=== PATIENT | female | born 1995 | race Two or more races ===

== ENCOUNTER 2017-08-18 22:19 | Emergency (ER) | payer SELFPAY ==
[~2017-08-18] VITALS: Ht 170.2 cm; Wt 136.0 kg
[2017-08-18 23:22] LABS: HEMATOCRIT 35.5 % (36.0-46.0); HEMOGLOBIN 12.1 G/DL (11.9-15.5); MCH 28.6 PG (29.0-34.0); MCHC 34.1 G/DL (30.0-36.0); MCV 83.9 FL (83-99); PLATELET COUNT 294 K/uL (156-360); RBC DIS.WIDTH-CV 12.8 % (11.8-14.6); RBC DIS.WIDTH-SD 39.2 % (39-53); RED BLOOD COUNT 4.23 M/uL (3.80-5.20); WHITE BLOOD COUNT 9.3 K/uL (4.1-10.2)
[2017-08-18 23:30] LABS: CHLORIDE 108 mEq/L (99-109); POTASSIUM 3.7 mEq/L (3.7-5.4); SODIUM 140 mEq/L (136-147)
[2017-08-18 23:32] LABS: GLUCOSE 74 mg/dL (70-99)
[2017-08-18 23:36] LABS: CREATININE 0.8 mg/dL (0.6-1.3); GFR ESTIMATE (CALCULATED) > 59 mL/min/
[2017-08-18 23:37] LABS: UREA NITROGEN (BUN) 10 mg/dL (9-23)
[2017-08-19 00:04] LABS: APPEARANCE CLEAR ((CLEAR)); BILIRUBIN NEGATIVE; BLOOD NEGATIVE; COLOR YELLOW ((YELLOW)); GLUCOSE (STRIP) NEGATIVE; KETONES NEGATIVE; LEUKOCYTES NEGATIVE; NITRITE NEGATIVE; PROTEIN (STRIP) NEGATIVE; SPECIFIC GRAVITY 1.024 (1.000-1.030); UCUL ADDED? NO; UROBILINOGEN 0.2 MG/DL (0.2-1.0)
[2017-08-19 01:20] VITALS: BP 121/77
== END 2017-08-19 01:30 | disposition home or self-care (01) ==
LOC: EDBD 22:19 → EME 22:19
PROVIDERS: Emergency Medicine
DX: G40.909 Epilepsy, unspecified, not intractable, without status epilepticus (principal); Z87.820 Personal history of traumatic brain injury
CPT/HCPCS: 80048; 81003; 81025; 83605; 85027; 93005; 99281; 99285

== ENCOUNTER 2017-09-16 22:16 | Emergency (ER) | payer SELFPAY ==
[~2017-09-16] VITALS: Ht 175.3 cm; Wt 138.9 kg
[2017-09-16 23:36] LABS: HEMATOCRIT 35.1 % (36.0-46.0); HEMOGLOBIN 11.7 G/DL (11.9-15.5); MCH 28.1 PG (29.0-34.0); MCHC 33.3 G/DL (30.0-36.0); MCV 84.4 FL (83-99); PLATELET COUNT 318 K/uL (156-360); RBC DIS.WIDTH-CV 12.7 % (11.8-14.6); RBC DIS.WIDTH-SD 38.9 % (39-53); RED BLOOD COUNT 4.16 M/uL (3.80-5.20)
[2017-09-16 23:48] LABS: CHLORIDE 107 mEq/L (99-109); POTASSIUM 3.7 mEq/L (3.7-5.4); SODIUM 139 mEq/L (136-147)
[2017-09-16 23:51] LABS: GLUCOSE 101 mg/dL (70-99); TOTAL PROTEIN 7.5 g/dL (6.4-8.3)
[2017-09-16 23:51] LABS: APPEARANCE CLOUDY ((CLEAR)); BILIRUBIN NEGATIVE; BLOOD SMALL; COLOR YELLOW ((YELLOW)); GLUCOSE (STRIP) NEGATIVE; KETONES NEGATIVE; LEUKOCYTES LARGE; NITRITE NEGATIVE; PROTEIN (STRIP) NEGATIVE; SPECIFIC GRAVITY 1.023 (1.000-1.030); UROBILINOGEN 0.2 MG/DL (0.2-1.0)
[2017-09-16 23:53] LABS: TOTAL BILIRUBIN 0.2 mg/dL (0.0-1.0)
[2017-09-16 23:54] LABS: ALKALINE PHOSPHATASE 103 IU/L (3-129); CREATININE 0.8 mg/dL (0.6-1.3); GFR ESTIMATE (CALCULATED) > 59 mL/min/
[2017-09-16 23:56] LABS: BACTERIA RARE /HPF; EPITHELIAL CELLS 2+ /HPF; MUCUS 1+ /LPF; UCUL ADDED? YES
[2017-09-16 23:56] LABS: AST (GOT) 28 IU/L (2-34); TROP-I INTERPRETATION NEGATIVE; TROPONIN-I < 0.01 ng/mL (0.0-0.30); UREA NITROGEN (BUN) 13 mg/dL (9-23)
[2017-09-16 23:57] LABS: ALT (GPT) 36 IU/L (3-49)
[2017-09-16 23:58] LABS: LIPASE 27 U/L (1.0-51.0)
[2017-09-17] MEDS ORDERED: DIFLUCAN150 MG PO (01:52)
[2017-09-17 02:37] LABS: SOURCE SWAB
[2017-09-17 03:14] VITALS: BP 131/99
== END 2017-09-17 03:21 | disposition home or self-care (01) ==
LOC: EME 22:16
PROVIDERS: Emergency Medicine
DX: R07.89 Other chest pain (principal); B37.3 Candidiasis of vulva and vagina; N64.4 Mastodynia; Z86.69 Personal history of other diseases of the nervous system and sense organs; Z87.820 Personal history of traumatic brain injury; Z83.2 Family history of diseases of the blood and blood-forming organs and certain disorders involving the immune mechanism
CPT/HCPCS: 71046; 80053; 81003; 81025; 83690; 84484; 85027; 85379; 87086; 87491; 87591; 93005; 99281; 99284; J0696

== ENCOUNTER 2017-10-24 18:45 | Emergency (ER) | payer SELFPAY ==
[~2017-10-24] VITALS: Ht 175.3 cm; Wt 136.4 kg
[~2017-10-24 18:45] MED LIST: DIFLUCAN150 MG PO
[2017-10-24 19:11] LABS: HEMATOCRIT 36.4 % (36.0-46.0); HEMOGLOBIN 12.2 G/DL (11.9-15.5); MCH 28.2 PG (29.0-34.0); MCHC 33.5 G/DL (30.0-36.0); MCV 84.1 FL (83-99); PLATELET COUNT 295 K/uL (156-360); RBC DIS.WIDTH-CV 13.3 % (11.8-14.6); RED BLOOD COUNT 4.33 M/uL (3.80-5.20); WHITE BLOOD COUNT 9.1 K/uL (4.1-10.2)
[2017-10-24 19:23] LABS: CHLORIDE 106 mEq/L (99-109); POTASSIUM 3.6 mEq/L (3.7-5.4); SODIUM 138 mEq/L (136-147)
[2017-10-24 19:25] LABS: GLUCOSE 103 mg/dL (70-99); TOTAL PROTEIN 7.2 g/dL (6.4-8.3)
[2017-10-24 19:27] LABS: TOTAL BILIRUBIN 0.4 mg/dL (0.0-1.0)
[2017-10-24 19:29] LABS: ALKALINE PHOSPHATASE 90 IU/L (3-129); CREATININE 0.8 mg/dL (0.6-1.3); GFR ESTIMATE (CALCULATED) > 59 mL/min/
[2017-10-24 19:30] LABS: UREA NITROGEN (BUN) 9 mg/dL (9-23)
[2017-10-24 19:32] LABS: ALT (GPT) 73 IU/L (3-49); AST (GOT) 56 IU/L (2-34); LIPASE 27 U/L (1.0-51.0)
[2017-10-24 19:40] LABS: QUANTITATIVE HCG < 4.0 MIU/ML
[2017-10-24 19:59] LABS: APPEARANCE CLOUDY ((CLEAR)); BILIRUBIN NEGATIVE; BLOOD NEGATIVE; COLOR YELLOW ((YELLOW)); GLUCOSE (STRIP) NEGATIVE; KETONES NEGATIVE; LEUKOCYTES NEGATIVE; NITRITE NEGATIVE; PROTEIN (STRIP) 100; SPECIFIC GRAVITY 1.031 (1.000-1.030)
[2017-10-24 20:26] LABS: BACTERIA 2+ /HPF; EPITHELIAL CELLS 1+ /HPF; MUCUS 1+ /LPF; RED BLOOD CELLS 0-5 /HPF (0-5); UCUL ADDED? YES; WHITE BLOOD CELLS 0-5 /HPF (0-5)
[2017-10-24 20:27] LABS: AMORPHOUS URATES CRYSTALS 2+; HYALINE CASTS 0-5 /LPF
[2017-10-24] MEDS ORDERED: ZOFRAN ODT4 MG PO (23:28)
[2017-10-24] MEDS ORDERED: ULTRAM50 MG PO (23:51)
[2017-10-25 00:03] VITALS: BP 113/77
== END 2017-10-25 00:04 | disposition home or self-care (01) ==
LOC: EME 18:45
DX: R11.2 Nausea with vomiting, unspecified (principal); R10.9 Unspecified abdominal pain
CPT/HCPCS: 76705; 80053; 81003; 83690; 84702; 85027; 87086; 93005; 99281; 99285; J2405; J3010; J7030; S0028